=== PATIENT | female | born 1970 | race Two or more races ===

== ENCOUNTER 2018-11-28 12:49 | Observation (INO) ==
[2018-11-28 13:05] VITALS: TEMP 98
[2018-11-28] MEDS ORDERED: Acetaminophen 500 MG Tablet PO ONE (13:18)
--- NOTE | 2018-11-28 13:23 | ED ---
HPI General Chief Complaint: Nausea/Vomiting/Diarrhea Stated Complaint: Fatigue Complaint/Chest Tightness Time Seen by Provider: 11/28/18 13:06 Source: patient Mode of arrival: ambulatory Limitations: no limitations History of Present Illness HPI narrative: 48-year-old female presents to the emergency department for evaluation of chest tightness, lightheadedness, nausea and diarrhea that started this morning. She states actually she woke up yesterday with mid upper back pain that was somewhat alleviated by Aleve and aspirin. She states this morning she became concerned because the pain was continuous and she had associated symptoms. She says her "neck to her chest feels weird"and describes it as compression and rated 8/10 and nonradiating. She says taking deep breaths increases her pain. She denies any inciting events to her pain such as trauma or overuse. She states last night she had cold sweats but denies fevers. She denies recent travel, history of DVT/PE, immobilization, surgeries, fractures, cancer. Says she has a history of heavy tobacco use and smokes 1 pack/day of cigarettes. Denies known history of hyperlipidemia, hypertension. She has no known family history of cardiac disease. She does not currently have a primary care physician. She has never been evaluated by glass crusher. She states that she had asthma in her youth in which she used nebulizers. She has not used any medication other than the Aleve and aspirin mentioned previously for relief of her pain. Denies fevers, loss of bowel or bladder function, saddle anesthesia, IV drug use, direct trauma, cancer. complaint: Reports chest pain Related Data Home Medications Medication Instructions Recorded Confirmed No Known Home Medications 11/09/18 11/28/18 Allergies Allergy/AdvReac Type Severity Reaction Status Date / Time No Known Allergies Allergy Verified 09/17/18 11:58 Review of Systems ROS: all other systems reviewed are negative [facility] Medical History Medical History Tobacco use (Acute) Surgical History Surgical History H/O tubal ligation (Acute) Social History Social History Substance History: No History of Abuse Second Hand Smoke Exposure: Yes Smoking Status: Current every day smoker Tobacco Type: Cigarettes Packs Per Day: 1.5 Cigarettes Per Day: 30.0 Years Smoked: 36 Pack-Years: 54.00 How Often Do You Have a Drink Containing Alcohol: 2 to 4 times a month Hx Recent Travel: No Recent Travel in [facility] within the Last 8 Weeks: No Recent Out of Country Travel within the Last 8 Weeks: No Immunization History Tetanus Immunization: Unsure Exam Narrative Exam Narrative: GENERAL: WD, WN in NAD SKIN: Focused skin assessment warm/dry. HEAD: Atraumatic. Normocephalic. EYES: Pupils equal and round. No scleral icterus. No injection or drainage. ENT: No nasal bleeding or discharge. Mucous membranes pink and moist. No tonsillar hypertrophy or exudate. NECK: Trachea midline. No JVD. No meningismus. No midline tenderness. CARDIOVASCULAR: Regular rate and rhythm. No murmur appreciated. RESPIRATORY: No accessory muscle use. Scant wheezing upper lobes without rhonchi GASTROINTESTINAL: Abdomen soft, non-tender, nondistended. No CVAT. BACK: No CVA tenderness. No rash. No point tenderness on palpation of the spine. No real tenderness to palpation of the paraspinous musculature but she does indicate the location of the back pain yesterday to be in the lower thoracic musculature MUSCULOSKELETAL: No obvious deformities. No clubbing. No cyanosis. No edema. No tenderness to palpation of the calves. Sensation intact to bilateral lower extremities. NEUROLOGICAL: Awake and alert. No obvious cranial nerve deficits. Motor grossly within normal limits. Normal speech. PSYCHIATRIC: Appropriate mood and affect; insight and judgment normal. Course Initial Documented Vital Signs Temperature 98.3 F 11/28/18 12:55 Pulse Rate 88 11/28/18 12:55 Respiratory Rate 16 11/28/18 12:55 Blood Pressure 149/79 H 11/28/18 12:55 Pulse Oximetry 99 11/28/18 12:55 Last Documented Vital Signs Temperature 98.0 F 11/28/18 13:05 Pulse Rate 78 11/28/18 16:30 Respiratory Rate 16 11/28/18 16:30 Blood Pressure 106/51 L 11/28/18 16:30 Pulse Oximetry 98 11/28/18 16:30 Clinical Decision Support HEART Score Questions History: Slightly suspicious EKG: Normal Age: 45-64 years Risk Factors: 1-2 Risk Factors Initial Troponin: Normal Limit Heart Score HEART Score: 2 PERC Rule Age greater than or equal to 50: Yes HR greather than or equal to 100: No Sa02 on room air is less than 95%: No Unilateral Leg Swelling: No Hemoptysis: No Recent Surgery or Trauma: No Prior PE or DVT: No Hormone Use: No Medical Decision Making MDM Narrative Medical decision making narrative: 48-year-old female presents to the emergency department evaluation of chest tightness, back pain that started yesterday. She also reports associated fatigue, nausea, vomiting and diarrhea. She says that she had upper back pain that started last night but was somewhat resolved with Aleve and baby aspirin. She says this morning she woke up and she continued to have discomfort and had chest tightness. She describes her tightness as moderate in severity and nonradiating. She denies heart palpitations. She states that she has been a heavy smoker for most of her life. She denies history of cardiac problems and has never seen a glass crusher. She denies a known history of hypertension or hyperlipidemia. She is not diabetic. She has no known family history of heart problems either. Her vital signs are stable. EKG shows sinus rhythm at rate [address] elevations or depressions. Her labs are notable for WBC 9.1, H&H 14.4/42.4 INR 0.9. CMP sodium 141, potassium 3.5, BUN/creatinine 12/0.62 I am unable to use the PERC rule is patient is 50. D-dimer 0.46. Chest x-ray clear. Also ordered nebulizer as patient says she has a history of asthma in her youth. On exam, she also has mild wheezing. She reports some improvement after nebs Aspirin administered. Patient states she would like to avoid nitroglycerin as this causes headaches. Will administer Tylenol as premedication to help prevent headache. At admission to the chest pain center, she denies chest pain. Will avoid nitroglycerin for now. I had a discussion regarding admission for ACS rule out. Patient agrees to stay for evaluation. Her biggest risk factor is her heavy smoking. It is possible that her symptoms are related to asthma however, will rule out ACS. She has no other indication of upper respiratory symptoms. Medical Screen Exam Complete: Yes Emergency Medical Condition: Yes Differential Diagnosis Differential Diagnosis: AMI, angina, unstable angina, costochondritis, rib fracture, pneumonia, pneumothorax, aortic dissection, aortic aneurysm, pneumonitis, pulmonary embolism Lab Data Result diagrams: 11/28/18 13:05 11/28/18 13:05 Lab Results 11/28/18 11/28/18 11/28/18 Range/Units 13:05 13:05 13:05 WBC 9.1 (4.0-11.0) th/mm3 RBC 4.46 (4.00-5.30) mil/mm3 Hgb 14.4 (11.6-15.3) gm/dL Hct 42.4 (35.0-46.0) % MCV 95.1 (80.0-100.0) fL MCH 32.2 (27.0-34.0) pg MCHC 33.9 (32.0-36.0) % RDW 12.8 (11.6-17.2) % Plt Count 287 (150-450) th/mm3 MPV 8.5 (7.0-11.0) fL Neut % (Auto) 54.7 (16.0-70.0) % Lymph % (Auto) 32.1 (9.0-44.0) % [place] % (Auto) 6.3 (0.0-8.0) % Eos % (Auto) 5.8 H (0.0-4.0) % Baso % (Auto) 1.1 (0.0-2.0) % Neut # (Auto) 5.0 (1.8-7.7) th/mm3 Lymph # (Auto) 2.9 (1.0-4.8) th/mm3 [place] # (Auto) 0.6 (0.0-0.9) th/mm3 Eos # (Auto) 0.5 H (0.0-0.4) th/mm3 Baso # (Auto) 0.1 (0.0-0.2) th/mm3 WBC Differential . Differential Comment Auto diff final PT 9.5 L (9.8-11.6) sec INR 0.9 Ratio APTT 23.9 (23.4-31.7) sec D-Dimer Quant (PE/DVT) (0.00-0.50) mg/L FEU Sodium 141 (136-145) meq/L Potassium 3.5 (3.5-5.1) meq/L Chloride 106 (98-107) meq/L Carbon Dioxide 30.5 (21.0-32.0) meq/L Anion Gap 5 (5-15) meq/L BUN 12 (7-18) mg/dL Creatinine 0.62 (0.50-1.00) mg/dL Estimated GFR Greater than 89 (>89) mL/min Random Glucose 95 (74-106) mg/dL Calcium 8.9 (8.5-10.1) mg/dL Magnesium 2.0 (1.5-2.5) mg/dL Total Bilirubin 0.1 L (0.2-1.0) mg/dL AST 15 (15-37) U/L ALT 21 (10-53) U/L Alkaline Phosphatase 88 (45-117) U/L Total Creatine Kinase 58 (26-192) U/L Troponin I Less than 0.02 L (0.02-0.05) ng/mL Total Protein 7.6 (6.4-8.2) g/dL Albumin 3.7 (3.4-5.0) g/dL Lipase 67 L (73-393) U/L 11/28/18 11/28/18 Range/Units 13:05 16:05 WBC (4.0-11.0) th/mm3 RBC (4.00-5.30) mil/mm3 Hgb (11.6-15.3) gm/dL Hct (35.0-46.0) % MCV (80.0-100.0) fL MCH (27.0-34.0) pg MCHC (32.0-36.0) % RDW (11.6-17.2) % Plt Count (150-450) th/mm3 MPV (7.0-11.0) fL Neut % (Auto) (16.0-70.0) % Lymph % (Auto) (9.0-44.0) % [place] % (Auto) (0.0-8.0) % Eos % (Auto) (0.0-4.0) % Baso % (Auto) (0.0-2.0) % Neut # (Auto) (1.8-7.7) th/mm3 Lymph # (Auto) (1.0-4.8) th/mm3 [place] # (Auto) (0.0-0.9) th/mm3 Eos # (Auto) (0.0-0.4) th/mm3 Baso # (Auto) (0.0-0.2) th/mm3 WBC Differential Differential Comment PT (9.8-11.6) sec INR Ratio APTT (23.4-31.7) sec D-Dimer Quant (PE/DVT) 0.46 (0.00-0.50) mg/L FEU Sodium (136-145) meq/L Potassium (3.5-5.1) meq/L Chloride (98-107) meq/L Carbon Dioxide (21.0-32.0) meq/L Anion Gap (5-15) meq/L BUN (7-18) mg/dL Creatinine (0.50-1.00) mg/dL Estimated GFR (>89) mL/min Random Glucose (74-106) mg/dL Calcium (8.5-10.1) mg/dL Magnesium (1.5-2.5) mg/dL Total Bilirubin (0.2-1.0) mg/dL AST (15-37) U/L ALT (10-53) U/L Alkaline Phosphatase (45-117) U/L Total Creatine Kinase 56 (26-192) U/L Troponin I Less than 0.02 L (0.02-0.05) ng/mL Total Protein (6.4-8.2) g/dL Albumin (3.4-5.0) g/dL Lipase (73-393) U/L Imaging Data Radiologist's impression: Chest X-Ray 11/28/18 13:18 CONCLUSION: 1. No acute cardiopulmonary disease. Discharge Plan Discharge Disposition Patient Disposition: ED Admit(ED Internal Use Only) Discharge Condition Condition: Stable Discharge Order Discharge Orders: ED Use Only Admit Order (Routine); Ordered 11/28/18 Ordered By: Arti Lundy Discharge Details Diagnosis: Chest pain Physicians Team ED Provider: Elliott Bailey ED Midlevel Provider: Arti Lundy Primary Care Provider: Primary Care Ceci Angela Attending Provider: Edwin Serrano Status ED Status: Left Department Discharge Information Discharge Date/Time: 11/28/18 16:42
[2018-11-28 13:39] LABS: Baso # (Auto) 0.1 th/mm3 (0.0-0.2); Baso % (Auto) 1.1 % (0.0-2.0); Eos # (Auto) 0.5 th/mm3 (0.0-0.4); Eos % (Auto) 5.8 % (0.0-4.0); Hematocrit 42.4 % (35.0-46.0); Hemoglobin 14.4 gm/dL (11.6-15.3); Lymph # (Auto) 2.9 th/mm3 (1.0-4.8); Lymph % (Auto) 32.1 % (9.0-44.0); Mean Corpuscular HGB Conc 33.9 % (32.0-36.0); Mean Corpuscular Hemoglobin 32.2 pg (27.0-34.0); Mean Corpuscular Volume 95.1 fL (80.0-100.0); Mean Platelet Volume 8.5 fL (7.0-11.0); Mono # (Auto) 0.6 th/mm3 (0.0-0.9); Mono % (Auto) 6.3 % (0.0-8.0); Neut % (Auto) 54.7 % (16.0-70.0); Platelet Count 287 th/mm3 (150-450); Red Blood Count 4.46 mil/mm3 (4.00-5.30); Red Cell Distribution Width 12.8 % (11.6-17.2); White Blood Count 9.1 th/mm3 (4.0-11.0)
[2018-11-28 13:48] LABS: Activated Partial Thrombo Time 23.9 sec (23.4-31.7); INR 0.9 Ratio; Prothrombin Time 9.5 sec (9.8-11.6)
[2018-11-28 13:54] LABS: Alanine Aminotransferase 21 U/L (10-53); Albumin 3.7 g/dL (3.4-5.0); Anion Gap 5 meq/L (5-15); Aspartate Aminotransferase 15 U/L (15-37); Blood Urea Nitrogen 12 mg/dL (7-18); Calcium 8.9 mg/dL (8.5-10.1); Carbon Dioxide 30.5 meq/L (21.0-32.0); Chloride 106 meq/L (98-107); Glomerular Filtration Rate Greater Than 89 mL/min (>89); Glucose,Random 95 mg/dL (74-106); Lipase 67 U/L (73-393); Potassium 3.5 meq/L (3.5-5.1); Sodium 141 meq/L (136-145)
[2018-11-28 13:58] LABS: Alkaline Phosphatase 88 U/L (45-117); Creatine Kinase 58 U/L (26-192); Total Protein 7.6 g/dL (6.4-8.2)
--- NOTE | 2018-11-28 14:18 | XR ---
EXAM DATE: 11/28/2018 1:41 PM EST AGE/SEX: 48 years / Female INDICATIONS: Pain in middle of chest and back for one day, no shortness of breath CLINICAL DATA: This is the patient's initial encounter. Patient reports that signs and symptoms have been present for 1 day and indicates a pain score of 6/10. MEDICAL/SURGICAL HISTORY: None. None. COMPARISON: [facility] [place] 1V SINGLE AP, 11/09/2018. . FINDINGS: A single AP view of the chest demonstrates the lungs to be symmetrically aerated without evidence of mass, infiltrate or effusion. The cardiomediastinal contours are unremarkable. Osseous structures a re intact. CONCLUSION: 1. No acute cardiopulmonary disease. Electronically signed by: Daniel Rahman MD Board Certified Radiologist 11/28/2018 2:17 PM [facility] T
[2018-11-28 16:29] VITALS: BP 106/51; RESP 16; O2SAT 98
[2018-11-28 16:31] VITALS: PULSE 78
--- NOTE | 2018-11-28 16:55 | P.HPCA ---
History of Present Illness Primary Care Physician: No Primary Care Physician Chief Complaint: Chest pain History of Present Illness: 48 year old female who smokes 1.5 pack cigarettes daily presents emergency room for further evaluation of chest pain. Does not follow with a primary care provider, no known hypertension, hyperlipidemia, or diabetes. Onset yesterday morning upon awakening. Discomfort began mid back with radiation substernally. Characterized as a tightness, "like my breathing was being compressed." Sensation lasted all day yesterday. Upon awakening this morning, discomfort persisted however was accompanied with vomiting, loose stool, and dizziness. x1 nonbloody emesis and reports x1 loose bowel movement. No syncope. Hurt to take a deep breath. Denies any cough, sputum production, or wheezing. No recent illness, fever, chills, or known injury. Endorses similar chest tightness in the past she related to smoking. No precipitating factors. Relieving factors respiratory treatment given in ER. Past cardiac testing None Social history No known hypertension, hyperlipidemia, or diabetes. [id number] history. No alcohol or recreational drug use. . Endorses an active lifestyle. Works at a local [employer]. Family history Noncontributory for early onset cardiovascular disease - Diagnosis (1) Atypical chest pain (2) Tobacco use Review of Systems All other systems reviewed negative except as stated in HPI PMFSH - History History Provided By: Patient - Medical History Medical History: Medical History (Last Updated 11/28/18 @ 16:40 by MARCOS Mccullough) Tobacco use - Surgical History Surgical History: Surgical History (Last Updated 11/28/18 @ 16:41 by MARCOS Mccullough) H/O tubal ligation - Social History I have reviewed the patient's Social History: Yes - Tobacco History Second Hand Smoke Exposure: Yes Tobacco Use In Past 30 Days: Yes Smoking Status: Current every day smoker Tobacco Type: Cigarettes Packs Per Day: 1.5 Years Smoked: 36 - Alcohol History How Often Do You Have a Drink Containing Alcohol: 2 to 4 times a month - Substance Use History Substance History: No History of Abuse - Travel History History of Recent Travel: No Recent Travel in the [place] Within the Last 8 Weeks: No Recent Travel Out of the Country Within the Last 8 Weeks: No - Immunization History Tetanus Immunization: Unsure Medications and Allergies Active Medications: Active Medications Sodium Chloride (Ns Flush) 2 ml IV.FLUSH UNSCH PRN PRN Reason: FLUSH AFTER USING IV ACCESS Sodium Chloride (Ns Flush) 2 ml IV.FLUSH BID BRIGIDO Sodium Chloride (Ns Flush) 2 ml IV.FLUSH PRN PRN PRN Reason: FLUSH AFTER USING IV ACCESS Allergies Allergy/AdvReac Type Severity Reaction Status Date / Time No Known Allergies Allergy Verified 09/17/18 11:58 Home Medications Medication Instructions Recorded Confirmed Type No Known Home Medications 11/09/18 11/28/18 History Exam Vital signs: Vital Signs 11/28/18 12:55 11/28/18 13:05 11/28/18 14:29 Temperature 98.3 F 98.0 F Pulse Rate 88 76 Respiratory Rate 16 18 Blood Pressure 149/79 H 138/84 Pulse Oximetry 99 100 97 11/28/18 14:43 11/28/18 16:28 Temperature Pulse Rate 88 74 Respiratory Rate 17 16 Blood Pressure 106/51 L Pulse Oximetry 98 Intake & Output 11/27/18 11/28/18 11/28/18 18:59 06:59 18:59 Weight 54.431 kg Narrative: GENERAL: Alert WN, WD, NAD, pleasant, female HEAD: NC, AT EYES: Sclera clear, conjunctiva without injection ENT: Mucous membranes pink and moist NECK: Supple, no masses, trachea midline CV: RRR, without murmur, rub, gallop, no JVD, S1-S2. No carotid bruits. RESP: Diminished lungs throughout bilateral, no wheeze or rhonchi, symmetrical chest rise, nonlabored, able to speak in full sentences ABD: Soft, NT, ND, no masses, positive bowel tones EXT: Pulses +2x4, no dependent edema MS: Normal tone x4 extremities, nontender, no obvious deformities, full range of motion NEURO: Motor strength 5/5 PSYCH: A+O x3, pleasant affect, appropriate speech, mood, insight and judgment SKIN: Normal turgor, normal texture, no lesions, no rashes, tattoos Results 11/28/18 13:05 11/28/18 13:05 Cardiac Enzymes 11/28/18 11/28/18 Range/Units 13:05 13:05 AST 15 (15-37) U/L Troponin I Less than 0.02 L Cancelled (0.02-0.05) ng/mL Coagulation 11/28/18 Range/Units 13:05 PT 9.5 L (9.8-11.6) sec APTT 23.9 (23.4-31.7) sec CBC 11/28/18 Range/Units 13:05 WBC 9.1 (4.0-11.0) th/mm3 RBC 4.46 (4.00-5.30) mil/mm3 Hgb 14.4 (11.6-15.3) gm/dL Hct 42.4 (35.0-46.0) % Plt Count 287 (150-450) th/mm3 Neut # (Auto) 5.0 (1.8-7.7) th/mm3 Lymph # (Auto) 2.9 (1.0-4.8) th/mm3 [place] # (Auto) 0.6 (0.0-0.9) th/mm3 Eos # (Auto) 0.5 H (0.0-0.4) th/mm3 Baso # (Auto) 0.1 (0.0-0.2) th/mm3 Comprehensive Metabolic Panel 11/28/18 Range/Units 13:05 Sodium 141 (136-145) meq/L Potassium 3.5 (3.5-5.1) meq/L Chloride 106 (98-107) meq/L Carbon Dioxide 30.5 (21.0-32.0) meq/L BUN 12 (7-18) mg/dL Creatinine 0.62 (0.50-1.00) mg/dL Calcium 8.9 (8.5-10.1) mg/dL AST 15 (15-37) U/L ALT 21 (10-53) U/L Alkaline Phosphatase 88 (45-117) U/L Total Protein 7.6 (6.4-8.2) g/dL Albumin 3.7 (3.4-5.0) g/dL Intake and Output 11/28/18 11/28/18 11/28/18 06:59 14:59 22:59 Other: Weight 54.431 kg Patient Weight 11/29/18 06:59 Weight 54.431 kg - Imaging and Cardiology Imaging: Impressions Chest X-Ray 11/28/18 13:18 CONCLUSION: 1. No acute cardiopulmonary disease. EKG interpretations - EKG EKG results cardiology: sinus rhythm, normal axis, normal QRS, normal ST/T Caprini VTE Risk Assessment Caprini VTE Risk Assessment: No/Low Risk (score <= 1) Caprini Risk Assessment Model: Point Value = 1 Point Value = 2 Point Value = 3 Point Value = 5 Age 41-60 Minor surgery BMI > 25 kg/m2 Swollen legs Varicose veins or History of unexplained or recurrent spontaneous Oral contraceptives or hormone replacement Sepsis (< 1 month) Serious lung disease, including pneumonia (< 1 month) Abnormal pulmonary function Acute myocardial infarction Congestive heart failure (< 1 month) History of inflammatory bowel disease Medical patient at bed rest Age 61-74 Arthroscopic surgery Major open surgery (> 45 min) Laparoscopic surgery (> 45 min) Malignancy Confined to bed (> 72 hours) Immobilizing plaster cast Central venous access Age >= 75 History of VTE Family history of VTE Factor V Leiden Prothrombin [id number] Lupus anticoagulant Anticardiolipin antibodies Elevated serum homocysteine Heparin-induced thrombocytopenia Other congenital or acquired thrombophilia Stroke (< 1 month) Elective arthroplasty Hip, pelvis, or leg fracture Acute spinal cord injury (< 1 month) Prophylaxis Regimen: Total Risk Factor Score Risk Level Prophylaxis Regimen 0-1 Low Early ambulation 2 Moderate Order ONE of the following: *Sequential Compression Device (SCD) *Heparin 5000 units SQ BID 3-4 Higher Order ONE of the following medications: *Heparin 5000 units SQ TID *Enoxaparin/Lovenox 40 mg SQ daily (WT < 150 kg, CrCl > 30 mL/min) *Enoxaparin/Lovenox 30 mg SQ daily (WT < 150 kg, CrCl > 10-29 mL/min) *Enoxaparin/Lovenox 30 mg SQ BID (WT < 150 kg, CrCl > 30 mL/min) AND/OR *Sequential Compression Device (SCD) 5 or more Highest Order ONE of the following medications: *Heparin 5000 units SQ TID (Preferred with Epidurals) *Enoxaparin/Lovenox 40 mg SQ daily (WT < 150 kg, CrCl > 30 mL/min) *Enoxaparin/Lovenox 30 mg SQ daily (WT < 150 kg, CrCl > 10-29 mL/min) *Enoxaparin/Lovenox 30 mg SQ BID (WT < 150 kg, CrCl > 30 mL/min) AND *Sequential Compression Device (SCD) Assessment and Plan - Assessment (1) Atypical chest pain Code(s): R07.89 - Other chest pain Status: Acute Plan: Admitted chest pain center. Rule out ACS with 3 sets of EKGs and cardiac enzymes. Monitor on telemetry overnight. Will be evaluated by [facility] lieutenant fire fighter , Dr. Stark in morning. Discussed possible exercise cardiac testing in morning. Patient agreeable to plan of care and verbalized understanding. Encouraged her to establish with a primary care provider. (2) Tobacco use Code(s): Z72.0 - Tobacco use Status: Chronic Plan: Strongly encouraged and stressed importance of tobacco cessation. Instructed to quit smoking. Discussed Tobacco Free [place] program available and will be place in discharge instructions.
[2018-11-28 18:21] LABS: Creatine Kinase 56 U/L (26-192)
[2018-11-29] MEDS ORDERED: Aspirin 325 MG Tablet PO SCH (09:00)
--- NOTE | 2018-11-29 13:41 | ECG ---
Date Performed: 11/28/2018 Time Performed: 16:35:23 PTAGE: 48 years EKG: Sinus rhythm POSSIBLE RIGHT VENTRICULAR CONDUCTION DELAY Since the previous tracing, no significant change noted BORDERLINE ECG PREVIOUS TRACING : 11/28/2018 13.13 DOCTOR: Ranjith Leon Interpretating Date/Time 11/29/2018 14:42:24
--- NOTE | 2018-11-29 13:42 | ECG ---
Date Performed: 11/28/2018 Time Performed: 13:13:51 PTAGE: 48 years EKG: Sinus rhythm POSSIBLE RIGHT VENTRICULAR CONDUCTION DELAY Since the previous tracing, no significant change noted BORDERLINE ECG PREVIOUS TRACING : 11/09/2018 16.32 DOCTOR: Ranjith Leon Interpretating Date/Time 11/29/2018 14:42:38
== END 2018-11-28 19:14 | disposition left against medical advice (07) ==
LOC: NEPD 12:49 → NEDA 12:49 → NEPGCP 16:44
PROVIDERS: ADMIT Internal Medicine Cardiovascular Disease; ATTEND Internal Medicine Cardiovascular Disease
DX: F17.210 Nicotine dependence, cigarettes, uncomplicated; Z98.51 Tubal ligation status; R94.31 Abnormal electrocardiogram [ECG] [EKG]; R07.89 Other chest pain
CPT/HCPCS: 71010; 71045; 80053; 82550; 83690; 83735; 84484; 85025; 85379; 85610; 85730; 93005; 94664; 99285; G0378